=== PATIENT | female | born 1985 | race African-American/Black ===

== ENCOUNTER 2017-03-11 11:35 | Observation (INO) | payer OTHER ==
[~2017-03-11] VITALS: Ht 162.6 cm; Wt 70.8 kg
[~2017-03-11 11:35] MED LIST: DOCU250C91 PO; FERR-89 PO; IBUP-2070 PO; NOCURR; PREN1TAB80 PO
[2017-03-11 12:17] VITALS: BP 111/66
== END 2017-03-11 13:10 | disposition home or self-care (01) ==
LOC: 4S 11:35
PROVIDERS: ADMIT Obstetrics & Gynecology Gynecology; ATTEND Obstetrics & Gynecology Gynecology
DX: O48.0 Post-term pregnancy (principal); O99.013 Anemia complicating pregnancy, third trimester; Z3A.40 40 weeks gestation of pregnancy
CPT/HCPCS: 59025; G0378

== ENCOUNTER 2017-03-18 10:39 | Inpatient (IN) | payer OTHER ==
[~2017-03-18] VITALS: Ht 162.6 cm; Wt 69.9 kg
[~2017-03-18 10:39] MED LIST changes: -DOCU250C91 PO; -FERR-89 PO; -IBUP-2070 PO; -NOCURR; -PREN1TAB80 PO; +RINGERS SOLUTION,LACTATED 1,000 ML IV PRN; +RINGERS SOLUTION,LACTATED 1,000 ML IV SCH
[2017-03-18] MEDS ORDERED: METOCLOPRAMIDE HCL 5 MG/ML 2 ML VIAL IVP PRN (10:45)
[2017-03-18] MEDS ORDERED: CITRIC ACID/SODIUM CITRATE 30 ML SOLUTION UDCUP PO PRN (10:45)
[2017-03-18 11:09] VITALS: BP 97/62
[2017-03-18] MEDS ORDERED: AMPICILLIN SODIUM 2 GM/NS 100 ML IV ONE (11:30)
[2017-03-18] MEDS ORDERED: MISOPROSTOL 25 MCG TABLET VG ONE (11:30)
[2017-03-18] MEDS ORDERED: INFLUENZA VIRUS VACCINE QVS 2017-18 (3YR+)/PF 60 MCG/0.5 ML SYRINGE IM ONE ×2 (11:30→17:15)
[2017-03-18 11:52] LABS: BASOPHILS % (AUTO) 0.1 % (0.0-2.0); EOSINOPHILS % (AUTO) 0.9 % (1.0-6.0); HEMATOCRIT 29.7 % (36-46); HEMOGLOBIN 9.3 g/dL (12.0-16.0); LYMPHOCYTES # (AUTO) 0.9 K/uL (1.0-4.8); LYMPHOCYTES % (AUTO) 14.4 % (22.0-44.0); MEAN CORPUSCULAR HGB CONC 31.4 G/dL (31.0-37.0); MEAN CORPUSCULAR VOLUME 70 fL (80-100); MONOCYTES # (AUTO) 0.6 K/uL (0.1-1.0); MONOCYTES % (AUTO) 8.9 % (2.0-9.0); NEUTROPHILS # (AUTO) 4.8 K/uL (1.8-7.7); NEUTROPHILS % (AUTO) 75.7 % (40.0-70.0); PLATELET COUNT (AUTO) 267 K/uL (150-450); RED BLOOD CELL COUNT(AUTO) 4.23 MIL/uL (4.00-5.20); RED CELL DISTRIBUTION WIDTH 31.3 % (11.5-14.5); WHITE BLOOD COUNT (AUTO) 6.3 K/uL (4.5-11.0)
[2017-03-18] MEDS ORDERED: OXYTOCIN 30 UNITS/LACT RINGERS 500 ML IV ONE ×2 (12:19→12:22)
[2017-03-18] MEDS ORDERED: OXYTOCIN 30 UNITS/LACT RINGERS 500 ML IV PRN (15:34)
[2017-03-18] MEDS: AMPICILLIN SODIUM 1 GM/NS 50 ML IV SCH ×2 (15:53→20:08)
[2017-03-18] MEDS ORDERED: OXYGEN THERAPY IH SCH (20:00)
[2017-03-18] MEDS ORDERED: LIDOCAINE HCL/PF 1% 30 ML VIAL ONE (21:07)
[2017-03-18] MEDS ORDERED: LANOLIN 7 GM OINTMENT TP PRN (22:00)
[2017-03-18] MEDS ORDERED: MEASLES/MUMPS/RUBELLA VACCINE, LIVE 0.5 ML/VIAL SQ ONE (22:00)
[2017-03-18] MEDS ORDERED: GLYCERIN/WITCH HAZEL LEAF 40 PADS JAR TP PRN (22:00)
[2017-03-18] MEDS ORDERED: BENZOCAINE 20%/MENTHOL 56 GM SPRAY CANISTER TP PRN (22:00)
[2017-03-18] MEDS ORDERED: ACETAMINOPHEN/CODEINE 300-30 MG TABLET PO PRN ×2 (22:00)
[2017-03-18] MEDS: IBUPROFEN 600 MG TABLET PO PRN (22:13)
[2017-03-19] MEDS: IBUPROFEN 600 MG TABLET PO PRN ×2 (04:13→10:48)
[2017-03-19] MEDS: MAGNESIUM HYDROXIDE SUSPENSION 30 ML UDCUP PO SCH ×2 (10:47→20:57)
[2017-03-20] MEDS: IBUPROFEN 600 MG TABLET PO PRN (07:58)
[2017-03-20] MEDS ORDERED: IBUP-2070 PO (08:33)
[2017-03-20] MEDS ORDERED: DSS100 PO (08:34)
== END 2017-03-20 11:00 | disposition home or self-care (01) | DRG 560 ==
LOC: OBSVTOIN 10:39 → 4S 10:39 → PREOBSVTOIN 03-19 10:47
PROVIDERS: ADMIT Obstetrics & Gynecology Gynecology; ATTEND Obstetrics & Gynecology Gynecology
PROC: 10E0XZZ Delivery of Products of Conception, External Approach (ICD-10-PCS; principal; 2017-03-18)
PROC: 0KQM0ZZ Repair Perineum Muscle, Open Approach (ICD-10-PCS; 2017-03-18)
DX: O48.0 Post-term pregnancy (principal); O99.824 Streptococcus B carrier state complicating childbirth; O70.1 Second degree perineal laceration during delivery; Z37.0 Single live birth; Z3A.41 41 weeks gestation of pregnancy
CPT/HCPCS: 86850; 86900; 86901; J0290; J2590; J3490; J7120